=== PATIENT | female | born 1945 | race Caucasian/White ===

== ENCOUNTER 2020-02-10 03:04 | Emergency (ER) | payer BC ==
[~2020-02-10] VITALS: Ht 157.5 cm; Wt 59.0 kg
[2020-02-10 03:07] VITALS: BP 128/74
--- NOTE | 2020-02-10 03:10 | NUR ---
PT WAS BROUGHT IN BY RA AND HER SON FOR C/O " HER FEEDING TUBE CAME OFF". PT WAS NOTED W/ DRIED BLOOD ON THE TRUNK AREA. UPON ASSESSMENT, PT WAS FOUND W/ LEFT CHEST PORT A CATH W/ A GALDAMEZ NEEDLE IN PLACE WITHOUT A END AND DRIED BLOOD IN THE LINE. PT ALSO CAME IN W/ TPN BAG AND PUMP WITH A NEW GALDAMEZ NEEDLE CONNECTED. PT WITH A MULTIPLE STICHES ON THE L ABD WHICH REMAINED INTACT W/ NO BLEEDING OR REOPENING. THE BLEDDER? TUBE REMAINED INTACT AND DRAINING. THE PT WAS SEEN AND ASSESSED BY DR. GARCIA AT THE BED SIDE.
--- NOTE | 2020-02-10 03:35 | NUR ---
PER DR GARCIA'S INSTRUCTTION, ATTEMPTED TO FLUSH THE LINE TO THE GALDAMEZ NEEDLE BUT UNSUCCESSFUL, DUE TO IT'S CLOGGED. DR GARCIA MADE AWARE. PER OK TO CHANGE TH E GALDAMEZ NEEDLE SET. AFTER PROPER HAND WASHING AND USING STERILE TECHNIQUE THE GALDAMEZ NEEDLE AND DRESSING WAS CHANGED WITH GOOD BLOOD DRAW. PT TOLERATED THE PROCEDURE WELL. PT GOT CONNECTED TO THE TPN AND RESUMED THE PUMP PER PRE-SET RATE. SON AT THE BED SIDE.
--- NOTE | 2020-02-10 03:43 | NUR ---
PATIENT'S LANDRY-CATH IS CHANGED TO A 22G GALDAMEZ NEEDLE. DUE TO EXISTING NON-PATENT PORTACATH.
--- NOTE | 2020-02-10 03:50 | NUR ---
PATIENT IS GIVEN A BED BATH. CLEANED.
--- NOTE | 2020-02-10 03:55 | NUR ---
PATIENT AMBULATES WITH ASSISTANCE TO THE RESTROOM.
--- NOTE | 2020-02-10 04:13 | NUR ---
Patient discharged to home in stable condition. Written and verbal after care instructions given. Patient verbalizes understanding of instruction.
== END 2020-02-10 04:15 | disposition home or self-care (01) ==
LOC: ER 03:05
DX: Z45.2 Encounter for adjustment and management of vascular access device (principal); I10 Essential (primary) hypertension; Z85.51 Personal history of malignant neoplasm of bladder; Z88.6 Allergy status to analgesic agent; Z60.2 Problems related to living alone

== ENCOUNTER 2020-02-18 09:16 | Inpatient (IN) | payer BC, MEDICARE ==
[~2020-02-18] VITALS: Ht 162.6 cm; Wt 63.0 kg
--- NOTE | 2020-02-18 09:17 | NUR ---
PT BIB SON FROM HOME C/O ABDOMINAL PAIN AND J TUBE MALFUNCTION. PT IS AAOX3, NOT IN RESPIRATORY DISTRESS, HOOKED TO MONITOR, KEPT RESTED AND COMFORTABLE. WILL CONTINUE TO MONITOR.
--- NOTE | 2020-02-18 09:31 | NUR ---
AT BEDSIDE FOR EVAL.
--- NOTE | 2020-02-18 09:45 | NUR ---
IV LINE ESTABLISHED.
--- NOTE | 2020-02-18 09:48 | NUR ---
CALLED NURSING SUP FOR M/S BED.
--- NOTE | 2020-02-18 09:49 | NUR ---
NURSING SUP GAVE M/S BED 201.
[2020-02-18] MEDS ORDERED: ONDANSETRON HCL/PF 4 MG/2 ML VIAL ONE (09:52)
[2020-02-18] MEDS ORDERED: HYDROMORPHONE 1 MG/1 ML DISP.SYRIN ONE ×3 (09:53→14:42)
[2020-02-18] MEDS ORDERED: HYDROMORPHONE 1 MG/1 ML DISP.SYRIN IV ONE (10:00)
[2020-02-18] MEDS ORDERED: IV NS 0.9% 500 ML BAG IV ONE (10:00)
[2020-02-18] MEDS ORDERED: ONDANSETRON HCL/PF - ER 4 MG/2 ML VIAL IV ONE (10:00)
[2020-02-18 10:03] LABS: BASOPHILS % (AUTO) 0.2 % (0.0-2.0); HEMATOCRIT 24 % (33-45); HEMOGLOBIN 7.7 g/dL (11.5-14.8); LYMPHOCYTES # (AUTO) 0.3 /CMM (0.8-4.8); LYMPHOCYTES % (AUTO) 3.2 % (20.0-44.0); MEAN CORPUSCULAR HGB CONC 32 g/dl (31.0-36.0); MEAN CORPUSCULAR VOLUME 89 fL (82-100); MONOCYTES # (AUTO) 0.1 /CMM (0.1-1.30); MONOCYTES % (AUTO) 1.4 % (2.0-12.0); NEUTROPHILS # (AUTO) 9.3 /CMM (1.8-8.9); NEUTROPHILS % (AUTO) 95.2 % (43.0-81.0); PLATELET COUNT (AUTO) 266 /CMM (150-450); RED BLOOD CELL COUNT(AUTO) 2.69 MIL/uL (4.0-5.2); WHITE BLOOD COUNT (AUTO) 9.8 K/uL (4.3-11.0)
[2020-02-18 10:12] LABS: CALCIUM, SERUM 7.7 mg/dL (8.5-10.1); CREATININE 0.8 mg/dL (0.6-1.3); POTASSIUM 3.1 mmol/L (3.5-5.1)
[2020-02-18] MEDS ORDERED: ASPI-1169 PO (10:19)
[2020-02-18] MEDS ORDERED: METO25TA20 PO (10:19)
[2020-02-18] MEDS ORDERED: ENOX100D5 SQ (10:19)
[2020-02-18] MEDS ORDERED: FENT1PAT6 TD (10:19)
[2020-02-18] MEDS ORDERED: MORP100S3 SL (10:22)
[2020-02-18] MEDS ORDERED: TPN ADD (10:23)
[2020-02-18 10:28] LABS: ALBUMIN 2.1 g/dL (3.4-5.0); BILIRUBIN,DIRECT 0.7 mg/dL (0.0-0.2); BILIRUBIN,TOTAL 0.9 mg/dL (0.2-1.0); TOTAL PROTEIN, SERUM 6.5 g/dL (6.4-8.2)
[2020-02-18] MEDS ORDERED: IOHEXOL-300 100 ML VIAL IV ONE (10:36)
--- NOTE | 2020-02-18 10:40 | NUR ---
PT IS WHEELED TO CT SCAN VIA [facility].
--- NOTE | 2020-02-18 12:25 | NUR ---
CALLED [facility] FOR CT SCAN READ.
[2020-02-18] MEDS ORDERED: DIATR MEGLU/DIATRIZOATE SODIUM 30 ML BOTTLE (GASTROGRAPHIN) ONE (13:59)
[2020-02-18] MEDS ORDERED: HYDROMORPHONE INJ 0.5 MG/0.5 ML SYRINGE IV PRN ×2 (14:00→15:00)
--- NOTE | 2020-02-18 14:04 | NUR ---
GLOBAL COORDINATOR AT BEDSIDE FOR KUB.
--- NOTE | 2020-02-18 14:43 | NUR ---
RECEIVED VERBAL ORDER FROM DR GUTIERREZ FOR DILAUDID 0.5MG IVP FOR ABDOMINAL PAIN, CARRIED OUT
--- NOTE | 2020-02-18 14:55 | NUR ---
REPORT GIVEN TO MANNY MEADOWS FOR PATTI.
[2020-02-18] MEDS ORDERED: PIPERACILLIN /TAZOBACTAM 3.375 G in IV D5W 50 ML IV ONE (15:00)
[2020-02-18] MEDS ORDERED: Z GUARD REMEDY 2 OZ OINT TP PRN (15:30)
[2020-02-18] MEDS ORDERED: NALOXONE HCL 0.4 MG/ML AMPUL IV PRN (15:30)
[2020-02-18] MEDS ORDERED: ACETAMINOPHEN 325 MG TABLET PO PRN (15:30)
[2020-02-18] MEDS ORDERED: ZOLPIDEM TARTRATE 5 MG TABLET PO PRN (15:30)
[2020-02-18] MEDS ORDERED: MAGNESIUM HYDROXIDE 30 ML UDC PO PRN (15:30)
[2020-02-18] MEDS ORDERED: ONDANSETRON HCL/PF 4 MG/2 ML VIAL IVP PRN (15:30)
[2020-02-18] MEDS: POTASSIUM CL. PREMIX PERIPHER. 50 ML IV SCH ×4 (15:41→19:51)
--- NOTE | 2020-02-18 15:45 | NUR ---
MS LOAN EXAMINER NOTES RECEIVED PT VIA BUCK FROM ER DEPT AT 1515. PT AWAKE, A/OX 3. PT TOLERATING RA, WITH NO ACUTE RESPIRATORY DISTRESS NOTED. PT DENIES ANY PAIN OR DISCOMFORT AT THIS TIME. PIV TO R WRIST G20, FLUSHED WITH NS, INTACT AND OPERATIONAL. PT ABLE TO PROVIDE SOME HISTORY AND I SPOKE TO SON VIA PHONE WITH OTHER HISTORY WELL. PT AWARE SHE'S HERE FOR GT MALFUNCTION. PT KEPT COMFORTABLE. CALL LIGHT KEPT WITHIN REACH. CALL LIGHT KEPT WITHIN REACH. PT'S BED IN LOWEST, LOCKED POSITION WITH SR X3. WILL CONTINUE PLAN OF CARE.
--- NOTE | 2020-02-18 16:48 | NUR ---
MS RN NOTES RECEIVED CALL FROM , ORDERED TO HOLD LOVENOX 100MG TONIGHT. POSSIBLE EGD TOMORROW BUT WILL MEET PT FIRST IN AM PER DR. VAZQUEZ, WILL ENDORSE TO INCOMING NIGHT NURSE FOR PATTI.
--- NOTE | 2020-02-18 16:50 | NUR ---
MS RN NOTES PT REFUSED TO DO SKIN ASSESSMENT AT THIS TIME D/T ABD DISCOMFORT. WILL ENDORSE TO INCOMING NIGHT NURSE FOR PATTI.
[2020-02-18] MEDS: METOPROLOL TARTRATE 25 MG TABLET PO SCH (17:00)
[2020-02-18] MEDS: MORPHINE SULFATE SOLN CONCENTRATED 20 MG/ML SL PRN ×2 (18:35→22:47)
--- NOTE | 2020-02-18 18:39 | NUR ---
MS RN NOTES PT IN A LOT OF PAIN, RATED 10/10. PRN ROXANOL GIVEN SL. WILL CONTINUE TO MONITOR.
--- NOTE | 2020-02-18 18:51 | NUR ---
MS RN CLOSING NOTES PT REMAINS IN BED, AWAKE, A/OX 3. PT TOLERATING RA, WITH NO ACUTE RESPIRATORY DISTRESS NOTED. PT STATED ABDOMINAL PAIN, ROXANOL PRN GIVEN ORDERED SL. ON GOING IVPB POTASSIUM 10MEQ/50ML TO R WRIST G20, INTACT AND INFUSING WELL. GT PRESENT FOR ABDOMINAL DRAINAGE (DISPLACED, NOT REMOVED YET PER DR. VAZQUEZ TO BE SEEN AGAIN IN AM). PT KEPT COMFORTABLE. ALL NEEDS AND CARE ATTENDED. CALL LIGHT KEPT WITHIN REACH. CALL LIGHT KEPT WITHIN REACH. PT'S BED IN LOWEST, LOCKED POSITION WITH SR X3. WILL ENDORSE TO INCOMING NIGHT NURSE FOR PATTI.
--- NOTE | 2020-02-18 19:31 | NUR ---
RECEIVED PATIENT IN HER BED ALERT AND ORIENTATEDx3 NEEDED TO BE REMINDED SHE WAS AT THE HOSPITAL. NOTED gt DRAINAGE BROWN MURKY IN COLOR. iv SITE W/O REDNESS OR EDEMA.
[2020-02-18 20:00] VITALS: BP 123/61
[2020-02-18] MEDS ORDERED: ENOXAPARIN SODIUM 100 MG/ML DISP.SYRIN SQ SCH (21:00)
[2020-02-18] MEDS ORDERED: FENTANYL TD PATCH (50 MCG/HR) 50 MCG/HR PATCH.TD72 TD SCH (21:00)
[2020-02-18 22:30] VITALS: BP 128/56
[2020-02-18] MEDS ORDERED: TPN/PPN PER PHARMACY XX PRN (23:00)
--- NOTE | 2020-02-18 23:00 | NUR ---
sylvia here to see patient she called the son to update tpn ordered for the pharm to dose in rthe am
[2020-02-18] MEDS ORDERED: IV D5/ 0.9% NACL 1,000 ML IV PRN (23:30)
--- NOTE | 2020-02-19 04:39 | NUR ---
MS. GENTILE RECEIVED AWAKE AND ALERT BUT FORGETFUL. NEEDED AT TIMES TO BE REMINDED SHE WAS IN THE HOSPITAL. [facility] CONTACT. NOTED SHE WEARS EYE GLASSES AND HAS A CELL PHONE WHICH IS PLUGGED IN THE WALL AND CHARGING AND HER LIP GLOSS WITHIN REACH. HER SPEECH IS CLEAR GT DRAINAGE MURKY COLORED. 25 ML THIS 12 HOURS. ABDON KIDD CAME TO SEE THE PATIENT AROUND 2300 AND THEN CALLED THE SON DANIS [phone] AND GAVE HIM AN UPDATE. REMAINS NPO HOB UP 45 DEGREES PER MD ORDERS. ASPIRATION PRECAUTIONS. INCONTINENT US KEPT CLEAN AND DRY
--- NOTE | 2020-02-19 07:28 | NUR ---
MS RN NOTES RECEIVED PT IN BED, AWAKE, A/OX 3. PT TOLERATING RA, WITH NO ACUTE RESPIRATORY DISTRESS NOTED.PT DENIES ANY PAIN OR DISCOMFORT AT THIS TIME. DURING ROUNDS, DR CAMARENA AT BEDSIDE, PT WAS CONCERNED ABOUT BEING IN A WRONG HOSPITAL AND ASKING FOR DR. MULLEN FROM [facility]. PER DR. CAMARENA HE'LL CONTACT DR. ROMAN IN REGARDS TO PT. IVF D5NS AT 45ML/HR TO RIGHT WRIST 20G, INTACT AND FLUID INFUSING WELL. GT PRESENT FOR ABDOMINAL DRAINAGE (DISPLACED, NOT REMOVED YET PER DR. VAZQUEZ TO BE SEEN AGAIN TODAY). PT KEPT COMFORTABLE, HOB ELEVATED. CALL LIGHT KEPT WITHIN REACH. CALL LIGHT KEPT WITHIN REACH. PT'S BED IN LOWEST, LOCKED POSITION WITH SR X3. WILL CONTINUE PLAN OF CARE.
[2020-02-19 08:00] VITALS: BP 117/64
[2020-02-19] MEDS ORDERED: ASPIRIN 81 MG TAB.CHEW PO SCH (09:00)
[2020-02-19] MEDS: METOPROLOL TARTRATE 25 MG TABLET PO SCH (09:00)
[2020-02-19 09:19] LABS: CALCIUM, SERUM 7.9 mg/dL (8.5-10.1); CREATININE 1.2 mg/dL (0.6-1.3); HEMATOCRIT 21 % (33-45); LYMPHOCYTES # (AUTO) 0.2 /CMM (0.8-4.8); LYMPHOCYTES % (AUTO) 2.5 % (20.0-44.0); MAGNESIUM 3.3 mg/dL (1.8-2.4); MEAN CORPUSCULAR HGB CONC 32 g/dl (31.0-36.0); MEAN CORPUSCULAR VOLUME 89 fL (82-100); MONOCYTES # (AUTO) 0.1 /CMM (0.1-1.30); MONOCYTES % (AUTO) 0.9 % (2.0-12.0); NEUTROPHILS # (AUTO) 6.3 /CMM (1.8-8.9); NEUTROPHILS % (AUTO) 96.6 % (43.0-81.0); PHOSPHORUS 4.1 mg/dL (2.5-4.9); PLATELET COUNT (AUTO) 286 /CMM (150-450); RED BLOOD CELL COUNT(AUTO) 2.39 MIL/uL (4.0-5.2); WHITE BLOOD COUNT (AUTO) 6.5 K/uL (4.3-11.0)
[2020-02-19 09:45] LABS: HEMOGLOBIN 6.8 g/dL (11.5-14.8)
--- NOTE | 2020-02-19 09:45 | NUR ---
MS RN NOTES RECEIVED CALL FROM LAB REGARDING CRITICAL LOW HGB 6.8. HOSPITALIST/CC IN THE UNIT AND MADE AWARE. ALSO PT GOING AMA, BEING PREP AT THIS TIME. NO ORDERS AT THIS TIME. WILL CONTINUE TO MONITOR.
--- NOTE | 2020-02-19 10:05 | NUR ---
MS MANNY AMA NOTES PT AWAKE, A/O X2-3. PT TOLERATING RA, WITH NO RESPIRATORY DISTRESS. PT DENIES ANY PAIN OR THIS COMFORT AT THIS TIME. PT REFUSED SKIN ASSESSED. HOSPITALIST/CC AWARE OF PT DOING AMA, SON/DANIS AT THE LOBBY ACCOMPANIED THE PATIENT. PIV TO RIGHT WRIST REMOVED AND APPLIED DRY DRESSING. RECENT LAB RESULT AND H&P COPY GAVE TO THE SON/DANIS. AMA FORM/INCIDENT DONE. PT ESCORTED TO THE LOBBY VIA WHEELCHAIR. INFORMED SON/DANIS THAT HGB JUST RESULTED TO 6.8. PT LEFT THE HOSPITAL AT 1000.
[2020-02-19 10:28] LABS: BAND % (MANUAL) 1 % (0.0-5.0); LYMPHOCYTES % (MANUAL) 1 % (16-48); MONOCYTES % (MANUAL) 1 % (0-11.0); NEUTROPHILS % (MANUAL) 97 (42-76)
== END 2020-02-19 10:00 | disposition left against medical advice (07) | DRG 394 ==
LOC: ER 09:20 → MEDSG2 10:24
PROVIDERS: ADMIT Nurse Practitioner Acute Care; ATTEND Nurse Practitioner Acute Care
DX: K94.23 Gastrostomy malfunction (principal); E44.0 Moderate protein-calorie malnutrition; N13.30 Unspecified hydronephrosis; N17.9 Acute kidney failure, unspecified; D62 Acute posthemorrhagic anemia; K56.609 Unspecified intestinal obstruction, unspecified as to partial versus complete obstruction; Y83.3 Surgical operation with formation of external stoma as the cause of abnormal reaction of the patient, or of later complication, without mention of misadventure at the time of the procedure; Z85.51 Personal history of malignant neoplasm of bladder; Z86.711 Personal history of pulmonary embolism; Z87.898 Personal history of other specified conditions; Z90.710 Acquired absence of both cervix and uterus; Z91.041 Radiographic dye allergy status; Z79.82 Long term (current) use of aspirin; M54.9 Dorsalgia, unspecified; Z79.899 Other long term (current) drug therapy; Y73.8 Miscellaneous gastroenterology and urology devices associated with adverse incidents, not elsewhere classified; Y92.009 Unspecified place in unspecified non-institutional (private) residence as the place of occurrence of the external cause; E87.6 Hypokalemia; K83.8 Other specified diseases of biliary tract
CPT/HCPCS: 36415; 71045-TC; 74018; 80048-TC; 80061-TC; 80076-TC; 83605-TC; 83690-TC; 83735-TC; 84100-TC; 85025-TC; 85730-TC; 87081-TC; A6403; G0378; J1170; J2405; J2543; J3480; J7040; J7042; J7060; Q9963; Q9967